=== PATIENT | female | born 1965 | race Caucasian/White ===

== ENCOUNTER 2017-06-10 06:36 | Day surgery (SDC) | payer BC ==
[~2017-06-10 06:36] MED LIST: Buffered Lidocaine 0.9% SYRIN* 5 ML/SYR SYRINGE INTRADERM ONE; Buffered Lidocaine 0.9% SYRIN* 5 ML/SYR SYRINGE ONE; Dexamethasone IV* 4 MG/ML 1 ML (4 MG) IV SLOW PU ONE; Dexamethasone IV* 4 MG/ML 1 ML (4 MG) ONE; Famotidine IV* 10 MG/ML 2 ML (20 mg) IV ONE; Famotidine IV* 10 MG/ML 2 ML (20 mg) ONE
[2017-06-10] MEDS ORDERED: ceFAZolin 2 GM PREMIX (*) 50 ML IVPB ONE (07:09)
[2017-06-10] MEDS ORDERED: Scopolamine 1.5 mg* PATCH ONE (07:24)
[2017-06-10] MEDS ORDERED: Propofol* 10 MG/ML 20 ML BTL IV PUSH ONE (07:27)
[2017-06-10] MEDS ORDERED: Lidocaine 2% PF * 5 ML VIAL ONE (07:27)
[2017-06-10] MEDS ORDERED: Midazolam* 1 MG/ML 2 ML VIAL (2 MG) ONE (07:28)
[2017-06-10] MEDS ORDERED: fentaNYL* 50 MCG/ML 2 ML VIAL (100 MCG VIAL) ONE ×4 (07:28→10:17)
[2017-06-10] MEDS ORDERED: Bupivacaine 0.25% SDV* 30 ML ONE (07:34)
[2017-06-10] MEDS ORDERED: oxyCODONE/Acetamin 5/325 MG* TAB PO PRN (07:42)
[2017-06-10] MEDS ORDERED: PROCHLORPERAZINE INJ 5 MG/ML 2 ML VIAL IV PRN (07:42)
[2017-06-10] MEDS ORDERED: HYDROcodone/ACETAMIN 5-325 MG* 1 TAB PO PRN (07:42)
[2017-06-10] MEDS ORDERED: fentaNYL* 50 MCG/ML 2 ML VIAL (100 MCG VIAL) IV PRN (07:42)
[2017-06-10] MEDS ORDERED: KETAMINE HCL* 50 MG/ML 10 ML VIAL ONE (08:00)
[2017-06-10] MEDS ORDERED: Ondansetron INJ* 2 MG/ML VIAL ONE (09:24)
[2017-06-10] MEDS ORDERED: HYDROcodone/ACETAMIN 5-325 MG* 1 TAB ONE (10:16)
[2017-06-10 11:11] VITALS: BP 108/62
--- NOTE | 2017-06-10 15:19 | OP ---
DATE OF OPERATION: 06/10/17 - [facility] DATE OF : 67 SURGEON: Ronald Haskins MD PARK NATURALIST: SWATI Parr. An assistant construction superintendent was needed for the entirety of the procedure to aid in positioning of the arm and retraction. ANESTHESIOLOGIST: Bertin Mueller MD ANESTHESIA: General. PRE-OP DIAGNOSES: 1. 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 2. Right de Quervain's disease. 3. Right thumb basal joint arthritis. POST-OP DIAGNOSES: 1. 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 2. Right de Quervain's disease. 3. Right thumb basal joint arthritis. OPERATIVE PROCEDURE: 1. Right thumb carpometacarpal arthroplasty with distally based split, flexor carpi radialis tendon transfer for thumb suspension. 2. Right de Quervain's release. 3. Excision of small ganglion and osteophyte off ulnar hamate. INDICATIONS: Joann has had progressive right wrist pain due to multiple causes. We have attempted nonoperative treatment and she had failed that. She wants to proceed with surgery to see if we can get relief of her symptoms. I talked to her about the expected procedures and expected recovery. She wanted to proceed. EBL: 5 mL. COMPLICATIONS: None. FINDINGS: As expected. DESCRIPTION OF PROCEDURE: Joann was seen in the preoperative holding area, and the correct side, site, and procedure were identified. We came back to the operating room where the arm was prepped and draped in the usual sterile fashion after anesthesia was induced. A time-out was performed. I begun by making a dorsally based V-shaped flap over the osteophyte that was readily palpable just proximal to the fifth carpometacarpal joint. Full- thickness flaps were raised bluntly and the sensory nerves were protected. Just posterior and distal to the ulnar collateral ligament, there was a ganglion cyst protruding. This was excised and sent off to lab for pathology. Just underneath that was the osteophyte. This was excised to a nice smooth edge with the rongeur. I then applied a little bone wax to the area. The area was irrigated and the wound was closed with 4-0 nylon suture. I then turned my attention to the thumb base where a longitudinal incision was made from the base of the thumb down towards the radial styloid. Dissection was carried down longitudinally and the sensory nerves were retracted and protected. The radial artery was mobilized and retracted and the longitudinal incision was made through the capsule, and capsule and subperiosteal flaps were raised to expose the basal joint, the scaphotrapezial joint, and the trapezio- trapezoid joint. The soft tissues were released with the [place] blade and then rongeur was used to excise the trapezium in its entirety. I then raised the periosteum off the dorsal radial thumb metacarpal base. I used sequentially larger drill bits to make a drill hole from the dorsal radial aspect exiting out the volar ulnar articular portion of the thumb metacarpal. I then irrigated out this wound and turned my attention to the tendon transfer. I made a 1-cm transverse incision over the distal FCR, the tendon was raised up into the wound, split and a 25-gauge wire was passed through the split. I then made 2 more longitudinal incisions, about 6 or 7 cm proximal to the last. The tendon sheath was released along the entirety of the tendon and then the wire was pulled into the more proximal wound sequentially to release the tendon at the musculotendinous junction. I then used the two 25-gauge wires to shuttle the split end of the FCR tendon down into the thumb base wound. The 25-gauge wires were used to shuttle the tendon through the drill hole at the base of thumb metacarpal around the intact limb of the tendon and then appropriate tension was set as the tendon transfer was secured with three 3-0 Ethibond suture, figure-of-8 stitches. The remainder of the tendon was rolled up into a ball and secured with 3-0 Ethibond suture and then placed as an interposition between the base of the thumb and the distal pole of the scaphoid. I had checked the distal articular surface of the scaphoid and the under-surface the trapezoid. The articular cartilage there was fine, so no partial trapezoidectomy was necessary. I then closed the capsule with 3-0 Ethibond suture. Once I had a nice watertight seal, I then went ahead and irrigated out this wound. I then turned my attention to the de Quervain's release. A transverse incision was made about 2 cm in length just a little bit proximal to the radial styloid. Full- thickness flaps were raised with the Ragnell, and the Ragnell retractors were used to retract the dorsal sensory nerves. On the dorsal aspect of the tendon sheath, I went ahead and used my 15 blade to incise that. The release was extended proximally and distally with the tenotomy scissors. There was one accessory compartment and the septum was released with the tenotomy scissors. Once I had that fully released, I irrigated out all the wounds copiously. All the operative wounds were infiltrated with 0.25% plain Marcaine. All the wounds were closed with 4-0 nylon suture. The wounds were then dressed with Xeroform, 4x4's, sterile Webril, and a thumb spica splint with the IP joint free was placed. Tourniquet was deflated and the hand pinked up immediately. Total tourniquet time was just over 90 minutes. She was then woken up and taken to the recovery room in stable condition. [id number]/[facility] #: [id number] NEIL
== END 2017-06-10 11:05 | disposition home or self-care (01) ==
LOC: OREAST 06:36
PROVIDERS: ATTEND Orthopaedic Surgery Hand Surgery
DX: M19.031 Primary osteoarthritis, right wrist (principal); M65.4 Radial styloid tenosynovitis [de Quervain]; M67.431 Ganglion, right wrist; G47.33 Obstructive sleep apnea (adult) (pediatric); J45.909 Unspecified asthma, uncomplicated; Z87.891 Personal history of nicotine dependence; E78.5 Hyperlipidemia, unspecified
CPT/HCPCS: 88304; 88311; A9270-GY; J0690; J1100; J2250; J2405; J2704; J3010

== ENCOUNTER 2019-06-08 12:36 | Day surgery (SDC) | payer BC ==
[~2019-06-08 12:36] MED LIST changes: -Buffered Lidocaine 0.9% SYRIN* 5 ML/SYR SYRINGE INTRADERM ONE; -Buffered Lidocaine 0.9% SYRIN* 5 ML/SYR SYRINGE ONE; +Buffered Lidocaine 1% SYRIN* 1 ML/SYRINGE INTRADERM ONE; -Dexamethasone IV* 4 MG/ML 1 ML (4 MG) IV SLOW PU ONE; -Dexamethasone IV* 4 MG/ML 1 ML (4 MG) ONE; -Famotidine IV* 10 MG/ML 2 ML (20 mg) ONE; +Lactated Ringers 1000 ML Bag* 1,000 ML IV SCH; +Metoclopramide IV* 5 MG/ML 2 ML VIAL IV SLOW PU ONE; +Midazolam* 1 MG/ML 2 ML VIAL (2 MG) ONE; +fentaNYL* 50 MCG/ML 2 ML VIAL (100 MCG VIAL) ONE
[2019-06-08] MEDS ORDERED: Metoclopramide IV* 5 MG/ML 2 ML VIAL ONE (12:38)
[2019-06-08] MEDS ORDERED: Famotidine IV* 10 MG/ML 2 ML (20 mg) ONE (12:38)
[2019-06-08] MEDS ORDERED: Lidocaine 2% PF * 5 ML VIAL ONE (12:54)
[2019-06-08] MEDS ORDERED: Ondansetron INJ* 2 MG/ML VIAL ONE (12:54)
[2019-06-08] MEDS ORDERED: Propofol* 10 MG/ML 20 ML BTL ONE (12:54)
[2019-06-08] MEDS ORDERED: KETAMINE HCL* 50 MG/ML 10 ML VIAL ONE (12:54)
[2019-06-08] MEDS ORDERED: ceFAZolin 2 GM PREMIX in ORs 2 GM/50 ML BAG ONE (12:54)
[2019-06-08] MEDS ORDERED: Ketorolac INJ* 30 MG/ML 1 ML VIAL ONE (12:54)
[2019-06-08] MEDS ORDERED: Scopolamine 1.5 mg* PATCH TRANSDERM SCH (13:00)
[2019-06-08] MEDS ORDERED: Scopolamine 1.5 mg* PATCH ONE (13:05)
[2019-06-08] MEDS ORDERED: Bupivacaine 0.25% SDV* 30 ML ONE (13:13)
[2019-06-08] MEDS ORDERED: EPHEDrine (Pressors)* 50 MG/ML VIAL ONE (13:52)
[2019-06-08] MEDS ORDERED: HYDROmorphone INJ1* 1 MG/ML SYRINGE IV PRN (14:21)
[2019-06-08] MEDS ORDERED: fentaNYL* 50 MCG/ML 2 ML VIAL (100 MCG VIAL) IV PRN (14:21)
[2019-06-08] MEDS ORDERED: Naloxone* 0.4 MG/ML 1 ML VIAL IV PRN (14:21)
[2019-06-08] MEDS ORDERED: fentaNYL* 50 MCG/ML 2 ML VIAL (100 MCG VIAL) ONE (14:46)
[2019-06-08 16:01] VITALS: BP 100/68
--- NOTE | 2019-06-08 21:44 | OP ---
DATE OF OPERATION: 06/08/19 [facility] DATE OF : 67 SURGEON: Ronald Haskins MD AEROGRAPHER: SWATI Parr. An medical receptionist medical assistant was needed for the procedure to aid in positioning of the arm and retraction. ANESTHESIOLOGIST: Dr. Kan. ANESTHESIA: General. PRE-OP DIAGNOSES: 1. Painful right thumb carpometacarpal arthroplasty. 2. Right wrist scaphotrapezoid degenerative joint disease. POST-OP DIAGNOSES: 1. Painful right thumb carpometacarpal arthroplasty. 2. Right wrist scaphotrapezoid degenerative joint disease. OPERATIVE PROCEDURE: 1. Revision right thumb carpometacarpal arthroplasty. 2. Right partial trapezoidectomy with allograft interposition. INDICATIONS: Joann is 53. I did the CMC arthroplasty a couple of years ago. She has gone on to get erosion of the distal pole of the scaphoid at the site of the prior trapeziectomy. Her initial issue was STT joint arthritis and so I think a lot of the pain is related to the scaphotrapezoid joint arthritis as well as impingement between the distal pole of the scaphoid and the base of the metacarpal. We talked about other options. I told her that I would resuspend the thumb using a Mini TightRope device, additionally I would put some allograft tissue in it as an interposition and then I told her that we had to take out a part of the trapezoid. She understands all that, she understands the risks associated with this, and she wants to proceed. ESTIMATED BLOOD LOSS: 5 mL. COMPLICATIONS: None. FINDINGS: See above and below. DESCRIPTION OF PROCEDURE: Ms. Wallace was seen in the preoperative holding area. The correct site and side of the procedure were identified. We came back to the operating room. The arm was prepped and draped in the usual fashion. We did use Betadine prep due to her prior skin issues with the ChloraPrep. After the arm was prepped and draped, the time-out was performed. The arm was exsanguinated with the Esmarch and the tourniquet inflated to 225 mmHg. I reopened her prior dorsal radial thumb base incision. Dissection was carried down carefully longitudinally. The radial artery was again dissected free and mobilized out of the bed of scar tissue and retracted with a Ragnell retractor for protection. I reopened the prior site of the capsulotomy and trapeziectomy. I removed all of the soft tissue that was there including the tendon that had interposed as well as any scar tissue that had formed. It looked like the tendon ball that I created previously had actually eroded into the distal pole of the scaphoid. The scaphotrapezoid joint was arthritic. I went ahead and took my osteotome and removed part of the trapezoid. The distal part of the trapezoid stayed nicely suspended due to the CMC ligaments attached to it. There was no more impingement between the proximal pole aspect of the trapezoid and the distal pole of the scaphoid. The area of erosion seen on the x- ray did not extend into the scaphotrapezoid joint. After the partial trapezoidectomy was performed, I mobilized my thumb base by releasing the soft tissue around it with the [place] blade. I then placed the guidewire for the Arthrex Mini TightRope device through the base of the thumb, out of the base of the second metacarpal. I shuttled the suture out the base of the second metacarpal and then I pulled my suture attached to the EndoButton back down placing the button on the base of the second metacarpal and bringing the tail of the suture out the base of the first metacarpal. I then clipped the end of the suture, also placed another button there. That was then tied out down with appropriate tension. I checked the alignment on the mini C-arm fluoroscopy. I checked to make sure there was no impingement on the mini C-arm fluoroscopy. Everything looked good. I did go ahead and take the rongeur and trim off any osteophyte from the distal pole of the scaphoid. At this point, everything was looking good. The wound was irrigated out. I went ahead and took my AlloDerm allograft tissue and I pulled the drill over on itself multiple times creating a nice rectangular piece of tissue. Margins of that were tacked down with 4-0 Ethibond suture. It was then placed as an interposition between the site of the partial trapezoidectomy and the distal pole of the scaphoid as well as the site of the prior trapeziectomy. With the interpositioned tissue in place, I went ahead and closed my capsule with 4- 0 Vicryl and a couple of 4-0 Ethibond sutures. Wound was irrigated out. The skin was closed with 4-0 nylon suture. Wounds were dressed with Xeroform, 4x4s, sterile Webril, and then a thumb spica splint was applied with the IP joint free. 0.25% plain Marcaine had been infiltrated. Tourniquet was deflated and she was taken to the recovery room in stable condition. [id number]/[facility] #: [id number] NEIL
== END 2019-06-08 16:17 | disposition home or self-care (01) ==
LOC: OREAST 12:36
PROVIDERS: ATTEND Orthopaedic Surgery Hand Surgery
DX: M18.51 Other unilateral secondary osteoarthritis of first carpometacarpal joint, right hand (principal); M19.031 Primary osteoarthritis, right wrist; G47.33 Obstructive sleep apnea (adult) (pediatric); Q23.1 Congenital insufficiency of aortic valve; Z87.891 Personal history of nicotine dependence; K21.9 Gastro-esophageal reflux disease without esophagitis; Z88.8 Allergy status to other drugs, medicaments and biological substances; J30.89 Other allergic rhinitis
CPT/HCPCS: 76000; A9270-GY; C1776; J0690; J1885; J2250; J2405; J2704; J2765; J3010; J3490